=== PATIENT | male | born 1960 | race Caucasian/White ===

== ENCOUNTER 2021-02-08 10:17 | Day surgery (SDC) | payer BC, SELFPAY ==
[~2021-02-08] VITALS: Ht 180.3 cm; Wt 157.9 kg
[~2021-02-08 10:17] MED LIST: CEFAZOLIN SOD 2 GM in D5W 50 ML IV ONE; LR 1,000 ML IV SCH
[2021-02-08] MEDS ORDERED: MIDAZOLAM HCL 5 MG/5 ML VIAL IVP ONE (15:46)
[2021-02-08] MEDS ORDERED: NS IRRIG SOLN 1000 ML IR ONE (15:46)
[2021-02-08] MEDS ORDERED: ONDANSETRON HCL 4 MG/2 ML VIAL IVP ONE (15:46)
[2021-02-08] MEDS ORDERED: SUCCINYLCHOLINE CHLORIDE 20 MG/ML(QUELICIN) IVP ONE (15:46)
[2021-02-08] MEDS ORDERED: SEVOFLURANE 15 MIN GAS INH ONE (15:46)
[2021-02-08] MEDS ORDERED: fentaNYL CITRATE/PF 100 MCG/2 ML AMP IVP ONE (15:46)
[2021-02-08] MEDS ORDERED: LR 1,000 ML IV.SOLN IV ONE (15:46)
[2021-02-08] MEDS ORDERED: METOCLOPRAMIDE HCL 10 MG/2 ML VIAL IVP ONE (15:46)
[2021-02-08] MEDS ORDERED: SUGAMMADEX SODIUM 200 MG/2 ML VIAL IV ONE (15:46)
[2021-02-08] MEDS ORDERED: PROPOFOL 200MG/ 20ML VIAL (DIPRIVAN) IV ONE (15:46)
[2021-02-08] MEDS ORDERED: DEXAMETHASONE SOD PHOSPHATE 4 MG/ML VIAL IVP ONE (15:46)
[2021-02-08] MEDS ORDERED: BUPIVACAINE /PF 0.5% 30 ML VIAL INJ ONE (15:46)
[2021-02-08] MEDS ORDERED: ACETAMINOPHEN I.V. 1000 MG 100 ML IV ONE (16:34)
[2021-02-08] MEDS ORDERED: NALOXONE HCL 0.4 MG/ML AMP (NARCAN) IVP PRN (16:45)
[2021-02-08] MEDS ORDERED: HYDROmorphone 1 MG/ML INJ. CARTRIDGE IVP PRN (16:45)
[2021-02-08] MEDS ORDERED: LR 1,000 ML IV SCH (16:45)
[2021-02-08] MEDS ORDERED: HYDROmorphone 2 MG/ML VIAL IVP PRN (16:45)
[2021-02-08] MEDS ORDERED: ePHEDrine sulfate 50 MG/ML VIAL IVP PRN (16:45)
[2021-02-08] MEDS ORDERED: MIDAZOLAM HCL 5 MG/5 ML VIAL IVP PRN (16:45)
[2021-02-08] MEDS ORDERED: MEPERIDINE HCL/PF 25 MG/ML DISP.SYRIN IVP PRN (16:45)
[2021-02-08 17:45] VITALS: BP_SYST 121
== END 2021-02-08 19:05 | disposition home or self-care (01) ==
LOC: SDS 10:17 → SMU 10:17 → SDS 19:05
PROVIDERS: ATTEND Surgery
DX: R22.1 Localized swelling, mass and lump, neck (principal); D17.0 Benign lipomatous neoplasm of skin and subcutaneous tissue of head, face and neck; I10 Essential (primary) hypertension; E11.9 Type 2 diabetes mellitus without complications; E03.9 Hypothyroidism, unspecified; F32.9 Major depressive disorder, single episode, unspecified; E66.01 Morbid (severe) obesity due to excess calories; Z20.822 Contact with and (suspected) exposure to COVID-19; Z79.4 Long term (current) use of insulin; Z79.82 Long term (current) use of aspirin; Z79.899 Other long term (current) drug therapy; E78.00 Pure hypercholesterolemia, unspecified; Z87.891 Personal history of nicotine dependence
CPT/HCPCS: 21552; 82962; 88304; J0131; J0690; J7060; U0003; C9399; J0330; J1100; J2250; J2405; J2704; J2765; J3010; J3490; J7120